=== PATIENT | female | born 1945 | race Caucasian/White ===

== ENCOUNTER 2018-10-20 13:33 | Inpatient (IN) | payer MEDICARE, MEDICAID ==
[~2018-10-20] VITALS: Ht 162.6 cm; Wt 54.9 kg
[~2018-10-20 13:33] MED LIST: ACET-2853 PO
[2018-10-20] MEDS ORDERED: VISCOUS LIDOCAINE 2% 15 ML UDC PO STA (14:13)
[2018-10-20] MEDS ORDERED: ONDANSETRON HCL 4MG/2ML INJ IV STA (14:13)
[2018-10-20] MEDS ORDERED: SODIUM CHLORIDE 0.9% 1,000 ML IV ONE (14:13)
[2018-10-20] MEDS ORDERED: MAGNESIUM/ALUMINUM HYDROXIDE/SIMETHICONE 30ML UDC PO STA (14:13)
[2018-10-20] MEDS ORDERED: FAMOTIDINE 20MG/2ML VIAL IV STA (14:13)
[2018-10-20 14:37] LABS: BASOPHILS % 0.2 % (0.0-2.0); EOSINOPHILS % 0.2 % (0.0-5.0); HEMATOCRIT. 40.8 % (36.0-48.0); HEMOGLOBIN. 13.4 g/dL (12.0-16.0); LYMPHOCYTES % 8.5 % (20.0-50.0); MEAN CORPUSCULAR HEMOGLOBIN 28.1 pg (28.0-32.0); MEAN CORPUSCULAR VOLUME 85.6 fL (81.0-99.0); MEAN PLATELET VOLUME 8.1 fl (7.4-10.4); NEUTROPHILS % 86.1 % (40.0-76.0); PLATELET 269 x1000/uL (130-400); RED BLOOD CELL COUNT 4.76 mill/uL (4.2-5.4)
[2018-10-20 14:43] LABS: CHLORIDE 108 mEq/L (98-107)
[2018-10-20] MEDS ORDERED: DIATR MEGLU/DIATRIZOATE SOLN 30ML ONE (14:49)
[2018-10-20 14:50] LABS: INR 3.1; PROTHROMBIN TIME 30.2 sec (9.1-11.1)
[2018-10-20 15:11] LABS: CLARITY URINE CLOUDY (CLEAR); COLOR URINE YELLOW (YELLOW); KETONES URINE NEGATIVE (NEGATIVE); LEUKOCYTE ESTERASE URINE NEGATIVE (NEGATIVE); NITRITE URINE NEGATIVE (NEGATIVE); OCCULT BLOOD URINE TRACE (NEGATIVE); PH URINE 8.5 (4.5-8.0); PROTEIN URINE TRACE (NEGATIVE); SPECIFIC GRAVITY URINE 1.015 (1.005-1.030); UROBILINOGEN URINE 0.2 E.U./dL (0.2-1.0)
[2018-10-20] MEDS ORDERED: IOHEXOL-300 100 ML BOTTLE ONE (18:52)
[2018-10-20] MEDS ORDERED: MORPHINE SULFATE 4 MG/ML CPJ (NOT FOR IM USE) IV ONE (21:00)
[2018-10-21] VITALS (7 sets, daily range): BP systolic 126–156; BP diastolic 62–92
[2018-10-21] MEDS ORDERED: ONDANSETRON HCL 4MG/2ML INJ IV PRN (00:30)
[2018-10-21] MEDS ORDERED: MORPHINE SULFATE 4 MG/ML CPJ (NOT FOR IM USE) IV PRN (00:30)
[2018-10-21] MEDS: DEXT 5%/0.45% NACL KCL 20MEQ/L 1,000 ML IV SCH ×3 (02:27→18:41)
[2018-10-21] MEDS: PANTOPRAZOLE SODIUM 40 MG/VIAL IV SCH (10:05)
[2018-10-22] VITALS: BP 137/89
[2018-10-22 04:00] VITALS: BP 155/94
[2018-10-22 08:00] VITALS: BP 122/68
[2018-10-22] MEDS: PANTOPRAZOLE SODIUM 40 MG/VIAL IV SCH (08:26)
[2018-10-22 08:41] LABS: BASOPHILS % 0.6 % (0.0-2.0); EOSINOPHILS % 0.8 % (0.0-5.0); HEMATOCRIT. 39.7 % (36.0-48.0); HEMOGLOBIN. 13.1 g/dL (12.0-16.0); LYMPHOCYTES % 11.1 % (20.0-50.0); MEAN CORPUSCULAR HEMOGLOBIN 27.9 pg (28.0-32.0); MEAN CORPUSCULAR VOLUME 84.4 fL (81.0-99.0); MEAN PLATELET VOLUME 8.5 fl (7.4-10.4); MONOCYTES % 8.5 % (2.0-8.0); PLATELET 241 x1000/uL (130-400)
[2018-10-22 09:10] LABS: CHLORIDE 105 mEq/L (98-107)
[2018-10-22] MEDS: DEXT 5%/0.45% NACL KCL 20MEQ/L 1,000 ML IV SCH ×2 (11:20→18:06)
[2018-10-22 12:00] VITALS: BP_SYST 131; BP_SYST 45; BP_DIAS 52; BP_DIAS 82
[2018-10-22 12:38] LABS: INR 1.7; PROTHROMBIN TIME 17.1 sec (9.1-11.1)
[2018-10-22 14:53] VITALS: BP 129/73
[2018-10-22] MEDS ORDERED: WARFARIN SODIUM 2.5MG TABLET PO NR (18:00)
== END 2018-10-22 20:25 | disposition home or self-care (01) | DRG 948 ==
LOC: ER 13:33 → EDBEDREQ 21:02 → EDBEDREQTM 21:02 → ENRESERV 22:58 → 6EST 10-21 01:17
PROVIDERS: ADMIT Internal Medicine; ATTEND Internal Medicine
DX: R79.1 Abnormal coagulation profile (principal); K43.3 Parastomal hernia with obstruction, without gangrene; E87.8 Other disorders of electrolyte and fluid balance, not elsewhere classified; I10 Essential (primary) hypertension; I48.91 Unspecified atrial fibrillation; R32 Unspecified urinary incontinence; Z79.01 Long term (current) use of anticoagulants; Z85.038 Personal history of other malignant neoplasm of large intestine; Z93.3 Colostomy status; T45.515A Adverse effect of anticoagulants, initial encounter; Y92.89 Other specified places as the place of occurrence of the external cause
CPT/HCPCS: 36415; 74018; 74177; 80048; 84484; 96361; 96374; 96375; 99285; C9113; J2405; J3490; J7030; Q9963; Q9967

== ENCOUNTER 2021-01-13 15:40 | Inpatient (IN) | payer MEDICARE, MEDICAID ==
[~2021-01-13] VITALS: Ht 154.9 cm; Wt 56.2 kg
[~2021-01-13 15:40] MED LIST changes: -ACET-2853 PO; +ACET650T37 PO
[2021-01-13 16:32] LABS: BASOPHILS % 0.6 % (0.0-2.0); EOSINOPHILS % 0.1 % (0.0-5.0); HEMATOCRIT. 36.9 % (36.0-48.0); HEMOGLOBIN. 12.5 g/dL (12.0-16.0); MEAN CORPUSCULAR VOLUME 94.7 fL (81.0-99.0); MEAN PLATELET VOLUME 8.9 fl (7.4-10.4); MONOCYTES % 10.4 % (2.0-8.0); NEUTROPHILS % 76.9 % (40.0-76.0); PLATELET 233 x1000/uL (130-400); RED BLOOD CELL COUNT 3.89 mill/uL (4.2-5.4); RED CELL DISTRIBUTION WIDTH 15.7 % (11.6-14.6)
[2021-01-13 16:40] LABS: CHLORIDE 103 mEq/L (98-107)
[2021-01-13 16:43] LABS: INR 1.1
[2021-01-13] MEDS ORDERED: ACETAMINOPHEN 325MG TABLET PO ONE (16:45)
[2021-01-13] MEDS ORDERED: VANCOMYCIN 1 G PREMIX 200 ML IV ONE (17:00)
[2021-01-13] MEDS ORDERED: PIPERACILLIN/TAZ 3.375G PREMIX 50 ML IV ONE (17:00)
[2021-01-13] MEDS ORDERED: IPRATROPIUM/ALBUTEROL 0.5-3(2.5)MG/3ML NEB NEB PRN (18:15)
[2021-01-13] MEDS ORDERED: MAGNESIUM/ALUMINUM HYDROXIDE/SIMETHICONE 30ML UDC PO PRN (18:15)
[2021-01-13] MEDS ORDERED: LEVOFLOXACIN 500MG PREMIX 100 ML IV SCH (18:15)
[2021-01-13] MEDS ORDERED: DOCUSATE SODIUM 100MG CAPSULE PO PRN (18:15)
[2021-01-13] MEDS ORDERED: GUAIFENESIN 200MG/10ML SUGAR FREE UDC PO PRN (18:15)
[2021-01-13] MEDS ORDERED: ONDANSETRON HCL 4MG/2ML INJ IV PRN (18:15)
[2021-01-13] MEDS ORDERED: ACETAMINOPHEN 325MG TABLET PO PRN ×2 (18:15)
[2021-01-13] MEDS ORDERED: ENOXAPARIN 40MG/0.4ML SYR SUBCUT SCH (18:15)
[2021-01-13] MEDS ORDERED: KETOROLAC 15MG/ML VIAL IV PRN (18:15)
[2021-01-13] MEDS ORDERED: AZITHROMYCIN 500 MG in DEXT 5% WATER 250 ML IV SCH (18:15)
[2021-01-13] MEDS ORDERED: NITROGLYCERIN 0.4MG TABLET SL SL PRN (18:15)
[2021-01-13] MEDS ORDERED: CEFTRIAXONE 1 G PREMIX 50 ML IV SCH (18:30)
[2021-01-13] MEDS ORDERED: ENOXAPARIN 30MG/0.3ML SYR SUBCUT SCH (19:00)
[2021-01-13 19:17] LABS: CLARITY URINE CLOUDY (CLEAR); COLOR URINE YELLOW (YELLOW); KETONES URINE NEGATIVE (NEGATIVE); LEUKOCYTE ESTERASE URINE TRACE (NEGATIVE); NITRITE URINE POSITIVE (NEGATIVE); OCCULT BLOOD URINE 3+ (NEGATIVE); PROTEIN URINE 2+ (NEGATIVE); SPECIFIC GRAVITY URINE 1.037 (1.005-1.030)
[2021-01-13 19:33] LABS: *AMPHETAMINES SCREEN URINE NEGATIVE (NEGATIVE); *BARBITURATES SCREEN URINE NEGATIVE (NEGATIVE); *BENZODIAZEPINES SCREEN URINE NEGATIVE (NEGATIVE); *COCAINE SCREEN URINE NEGATIVE (NEGATIVE); METHADONE URINE SCREEN NEGATIVE (NEGATIVE); OPIATES URINE SCREEN NEGATIVE (NEGATIVE)
[2021-01-13 19:34] LABS: CANNABINOID URINE SCREEN NEGATIVE (NEGATIVE); PHENCYCLIDINE URINE SCREEN NEGATIVE (NEGATIVE)
[2021-01-13 19:38] LABS: T4 FREE 1.26 ng/dL (0.76-1.46)
[2021-01-13 19:50] LABS: FOLIC ACID (FOLATE) SERUM >20 ng/mL ng/mL (>5.38)
[2021-01-13 20:02] LABS: VITAMIN B12 SERUM 159 pg/mL (211-911)
[2021-01-13] MEDS ORDERED: ZOLPIDEM TARTRATE 5MG TABLET PO PRN (21:00)
[2021-01-13] MEDS: FAMOTIDINE 20MG TABLET PO SCH (22:55)
[2021-01-13] MEDS: ASCORBIC ACID 500 MG TABLET PO SCH (22:55)
[2021-01-13 23:05] VITALS: BP 143/68
[2021-01-13 23:06] VITALS: BP 143/68
[2021-01-14] VITALS: BP 139/71
[2021-01-14 00:19] LABS: CREATINE KINASE MB FRACTION 2.6 ng/mL (0.5-3.6)
[2021-01-14 04:00] VITALS: BP 161/46
[2021-01-14 07:02] LABS: BASOPHILS % 0.3 % (0.0-2.0); EOSINOPHILS % 0.3 % (0.0-5.0); HEMATOCRIT. 33.3 % (36.0-48.0); HEMOGLOBIN. 11.5 g/dL (12.0-16.0); LYMPHOCYTES % 13.8 % (20.0-50.0); MEAN CORPUSCULAR HEMOGLOBIN 32.2 pg (28.0-32.0); MEAN CORPUSCULAR VOLUME 92.9 fL (81.0-99.0); MEAN PLATELET VOLUME 9.2 fl (7.4-10.4); MONOCYTES % 9.3 % (2.0-8.0); NEUTROPHILS % 76.3 % (40.0-76.0); PLATELET 212 x1000/uL (130-400); RED BLOOD CELL COUNT 3.59 mill/uL (4.2-5.4); RED CELL DISTRIBUTION WIDTH 15.3 % (11.6-14.6)
[2021-01-14 07:15] LABS: CHLORIDE 101 mEq/L (98-107)
[2021-01-14 07:24] LABS: PHOSPHORUS 2.6 mg/dL (2.5-4.9)
[2021-01-14 07:31] LABS: CREATINE KINASE MB FRACTION 2.1 ng/mL (0.5-3.6)
[2021-01-14 08:00] VITALS: BP 155/70
[2021-01-14] MEDS ORDERED: ASPIRIN 325MG EC TABLET PO SCH (09:00)
[2021-01-14] MEDS: ZINC SULFATE 220 MG ( 50 ) CAPSULE PO SCH (09:54)
[2021-01-14] MEDS: CHOLECALCIFEROL (D3) 1000 UNIT TABLET PO SCH (09:54)
[2021-01-14] MEDS: ASCORBIC ACID 500 MG TABLET PO SCH ×2 (09:54→20:51)
[2021-01-14] MEDS ORDERED: DILTIAZEM HCL 5MG/ML 5ML VIAL IV NR (10:15)
[2021-01-14] MEDS: ENOXAPARIN 60MG/0.6ML SYR SUBCUT SCH ×2 (11:24→20:53)
[2021-01-14] MEDS: DILTIAZEM HCL 60MG TABLET PO SCH ×3 (11:24→23:40)
[2021-01-14 12:00] VITALS: BP 126/66
[2021-01-14] MEDS: AZITHROMYCIN 500 MG in DEXT 5% WATER 250 ML IV SCH (14:57)
[2021-01-14] MEDS ORDERED: MAGNESIUM 2 G PREMIX 50 ML IV NR (15:00)
[2021-01-14] MEDS: CEFTRIAXONE 1,000 MG in DEXTROSE 5% WATER 50 ML IV SCH (15:58)
[2021-01-14 16:00] VITALS: BP 133/78
[2021-01-14] MEDS ORDERED: METO-539 MT (18:39)
[2021-01-14] MEDS ORDERED: DILT360T13 MT (18:39)
[2021-01-14] MEDS ORDERED: LEVO75TA7 MT (18:39)
[2021-01-14] MEDS ORDERED: DIGO125T80 MT (18:39)
[2021-01-14] MEDS ORDERED: WARF2.5T83 MT (18:39)
[2021-01-14] MEDS ORDERED: EMPA10TA PO ×2 (18:39→21:41)
[2021-01-14 20:00] VITALS: BP 119/54
[2021-01-14] MEDS: FAMOTIDINE 20MG TABLET PO SCH (20:52)
[2021-01-14] MEDS ORDERED: METF500S7 PO (21:41)
[2021-01-14] MEDS ORDERED: SITA100T11 PO (21:41)
[2021-01-14] MEDS: DILTIAZEM HCL 5MG/ML 5ML VIAL IV PRN (22:32)
[2021-01-15] VITALS (7 sets, daily range): BP systolic 114–146; BP diastolic 57–81
[2021-01-15] MEDS: DILTIAZEM HCL 60MG TABLET PO SCH (05:19)
[2021-01-15] MEDS ORDERED: DEXTROSE 50% WATER 50ML SYRINGE IV PRN (05:30)
[2021-01-15] MEDS: BLOOD SUGAR DIAGNOSTIC STRIP TEST SCH ×4 (07:23→20:51)
[2021-01-15] MEDS: ZINC SULFATE 220 MG ( 50 ) CAPSULE PO SCH (08:51)
[2021-01-15] MEDS: CHOLECALCIFEROL (D3) 1000 UNIT TABLET PO SCH (08:51)
[2021-01-15] MEDS: INSULIN LISPRO 100 UNITS/ML SUBCUT SCH ×4 (08:52→20:51)
[2021-01-15] MEDS: ASCORBIC ACID 500 MG TABLET PO SCH ×2 (08:54→20:50)
[2021-01-15] MEDS: ENOXAPARIN 60MG/0.6ML SYR SUBCUT SCH ×2 (08:55→20:50)
[2021-01-15] MEDS ORDERED: ASPIRIN 81MG EC TABLET PO SCH (09:00)
[2021-01-15] MEDS ORDERED: LEVOFLOXACIN 500MG PREMIX 100 ML IV SCH (11:00)
[2021-01-15] MEDS: DILTIAZEM HCL 90MG TABLET PO SCH ×3 (12:26→23:23)
[2021-01-15] MEDS: CEFTRIAXONE 1,000 MG in DEXTROSE 5% WATER 50 ML IV SCH (13:56)
[2021-01-15] MEDS: AZITHROMYCIN 500 MG in DEXT 5% WATER 250 ML IV SCH (13:57)
[2021-01-15] MEDS ORDERED: DIGOXIN 500MCG/2ML AMP IV NR (15:23)
[2021-01-15 16:05] LABS: INR 1.1; PROTHROMBIN TIME 12.1 sec (9.6-11.0)
[2021-01-15] MEDS ORDERED: WARFARIN SODIUM 2.5MG TABLET PO SCH (18:00)
[2021-01-15] MEDS: FAMOTIDINE 20MG TABLET PO SCH (20:50)
[2021-01-15] MEDS: DILTIAZEM HCL 5MG/ML 5ML VIAL IV PRN (22:22)
[2021-01-16] VITALS: BP 108/65
[2021-01-16 04:00] VITALS: BP 141/73
[2021-01-16] MEDS: BLOOD SUGAR DIAGNOSTIC STRIP TEST SCH ×4 (06:14→21:32)
[2021-01-16] MEDS: DILTIAZEM HCL 90MG TABLET PO SCH ×4 (06:14→23:55)
[2021-01-16] MEDS: INSULIN LISPRO 100 UNITS/ML SUBCUT SCH ×4 (06:23→21:30)
[2021-01-16 08:00] VITALS: BP 156/78
[2021-01-16 08:56] LABS: CHLORIDE 102 mEq/L (98-107)
[2021-01-16] MEDS: ENOXAPARIN 60MG/0.6ML SYR SUBCUT SCH ×2 (09:02→21:31)
[2021-01-16] MEDS: ZINC SULFATE 220 MG ( 50 ) CAPSULE PO SCH (09:03)
[2021-01-16] MEDS: CLONIDINE 0.1MG TABLET PO PRN (09:03)
[2021-01-16] MEDS: ASCORBIC ACID 500 MG TABLET PO SCH ×2 (09:03→21:31)
[2021-01-16] MEDS: CHOLECALCIFEROL (D3) 1000 UNIT TABLET PO SCH (09:03)
[2021-01-16] MEDS ORDERED: DIGOXIN 500MCG/2ML AMP IV SCH (11:45)
[2021-01-16] MEDS: CEFTRIAXONE 1,000 MG in DEXTROSE 5% WATER 50 ML IV SCH (11:56)
[2021-01-16 12:00] VITALS: BP_SYST 130; BP_SYST 77; BP_DIAS 38; BP_DIAS 52
[2021-01-16 12:25] LABS: INR 1.2; PROTHROMBIN TIME 12.8 sec (9.6-11.0)
[2021-01-16] MEDS: AZITHROMYCIN 500 MG in DEXT 5% WATER 250 ML IV SCH (14:14)
[2021-01-16 16:00] VITALS: BP_SYST 118; BP_SYST 130; BP_DIAS 67; BP_DIAS 74
[2021-01-16] MEDS ORDERED: WARFARIN SODIUM 2.5MG TABLET PO SCH (18:00)
[2021-01-16] MEDS: DIGOXIN 125MCG TABLET PO SCH (18:08)
[2021-01-16] MEDS: AMPICILLIN 1,000 MG in SODIUM CHLORIDE 0.9% 50 ML IV SCH ×2 (18:09→23:55)
[2021-01-16 20:00] VITALS: BP 134/84
[2021-01-16] MEDS: FAMOTIDINE 20MG TABLET PO SCH (21:33)
[2021-01-17] VITALS (7 sets, daily range): BP systolic 108–166; BP diastolic 58–93
[2021-01-17] MEDS: AMPICILLIN 1,000 MG in SODIUM CHLORIDE 0.9% 50 ML IV SCH ×3 (05:41→18:00)
[2021-01-17] MEDS: DILTIAZEM HCL 90MG TABLET PO SCH ×4 (05:42→19:01)
[2021-01-17 06:42] LABS: INR 1.2; PROTHROMBIN TIME 12.8 sec (9.6-11.0)
[2021-01-17 06:47] LABS: BASOPHILS % 0.8 % (0.0-2.0); EOSINOPHILS % 0.3 % (0.0-5.0); HEMATOCRIT. 33.2 % (36.0-48.0); HEMOGLOBIN. 11.3 g/dL (12.0-16.0); LYMPHOCYTES % 13.6 % (20.0-50.0); MEAN CORPUSCULAR HEMOGLOBIN 32.2 pg (28.0-32.0); MEAN CORPUSCULAR VOLUME 94.4 fL (81.0-99.0); MEAN PLATELET VOLUME 9.6 fl (7.4-10.4); MONOCYTES % 8.7 % (2.0-8.0); NEUTROPHILS % 76.6 % (40.0-76.0); PLATELET 288 x1000/uL (130-400); RED BLOOD CELL COUNT 3.52 mill/uL (4.2-5.4)
[2021-01-17] MEDS: BLOOD SUGAR DIAGNOSTIC STRIP TEST SCH ×4 (06:47→21:06)
[2021-01-17] MEDS: INSULIN LISPRO 100 UNITS/ML SUBCUT SCH ×4 (07:50→21:06)
[2021-01-17] MEDS: ZINC SULFATE 220 MG ( 50 ) CAPSULE PO SCH (09:00)
[2021-01-17] MEDS: CHOLECALCIFEROL (D3) 1000 UNIT TABLET PO SCH (09:00)
[2021-01-17] MEDS: ASCORBIC ACID 500 MG TABLET PO SCH ×2 (09:00→21:04)
[2021-01-17] MEDS: ENOXAPARIN 60MG/0.6ML SYR SUBCUT SCH ×2 (09:01→21:04)
[2021-01-17] MEDS ORDERED: AMIODARONE HCL 900 MG in DEXT 5% WATER 482 ML IV SCH (12:30)
[2021-01-17] MEDS: AMIODARONE HCL 150 MG in DEXT 5% WATER 100 ML IV NR ×2 (14:20→14:54)
[2021-01-17] MEDS: DIGOXIN 125MCG TABLET PO SCH ×2 (17:16→19:01)
[2021-01-17] MEDS ORDERED: WARFARIN SODIUM 2MG TABLET PO NR (18:00)
[2021-01-17] MEDS: FAMOTIDINE 20MG TABLET PO SCH (21:04)
[2021-01-18] VITALS: BP 149/73
[2021-01-18 04:00] VITALS: BP 153/84
[2021-01-18] MEDS: AMPICILLIN 1,000 MG in SODIUM CHLORIDE 0.9% 50 ML IV SCH ×4 (06:00→17:56)
[2021-01-18] MEDS: DILTIAZEM HCL 90MG TABLET PO SCH ×3 (06:00→17:59)
[2021-01-18] MEDS: BLOOD SUGAR DIAGNOSTIC STRIP TEST SCH ×4 (06:51→21:49)
[2021-01-18 06:52] LABS: BASOPHILS % 0.5 % (0.0-2.0); EOSINOPHILS % 0.4 % (0.0-5.0); HEMATOCRIT. 31.5 % (36.0-48.0); HEMOGLOBIN. 10.9 g/dL (12.0-16.0); LYMPHOCYTES % 13.5 % (20.0-50.0); MEAN CORPUSCULAR HEMOGLOBIN 32.5 pg (28.0-32.0); MEAN CORPUSCULAR VOLUME 93.8 fL (81.0-99.0); MEAN PLATELET VOLUME 9.4 fl (7.4-10.4); MONOCYTES % 9.1 % (2.0-8.0); NEUTROPHILS % 76.5 % (40.0-76.0); PLATELET 287 x1000/uL (130-400); RED BLOOD CELL COUNT 3.36 mill/uL (4.2-5.4); RED CELL DISTRIBUTION WIDTH 14.8 % (11.6-14.6)
[2021-01-18 06:54] LABS: INR 1.2; PROTHROMBIN TIME 12.7 sec (9.6-11.0)
[2021-01-18 07:06] LABS: CHLORIDE 102 mEq/L (98-107)
[2021-01-18 07:18] LABS: CREATINE KINASE 75 IU/L (26-192)
[2021-01-18] MEDS: CHOLECALCIFEROL (D3) 1000 UNIT TABLET PO SCH (07:53)
[2021-01-18] MEDS: ASCORBIC ACID 500 MG TABLET PO SCH ×2 (07:53→21:47)
[2021-01-18] MEDS: ZINC SULFATE 220 MG ( 50 ) CAPSULE PO SCH (07:53)
[2021-01-18] MEDS: ENOXAPARIN 60MG/0.6ML SYR SUBCUT SCH ×2 (08:27→21:48)
[2021-01-18] MEDS: INSULIN LISPRO 100 UNITS/ML SUBCUT SCH ×4 (08:28→21:49)
[2021-01-18 11:01] VITALS: BP 135/73
[2021-01-18 12:00] VITALS: BP 136/81
[2021-01-18] MEDS: AMIODARONE HCL 200 MG TABLET PO SCH (15:57)
[2021-01-18 16:00] VITALS: BP 162/93
[2021-01-18] MEDS ORDERED: DIATR MEGLU/DIATRIZOATE SOLN 30ML PO NR (16:00)
[2021-01-18] MEDS ORDERED: DIGOXIN 500MCG/2ML AMP IV SCH (18:00)
[2021-01-18] MEDS ORDERED: WARFARIN SODIUM 3MG TABLET PO NR (18:00)
[2021-01-18] MEDS: FAMOTIDINE 20MG TABLET PO SCH (21:47)
[2021-01-19] MEDS: AMIODARONE HCL 200 MG TABLET PO SCH ×4 (01:14→22:00)
[2021-01-19] MEDS: AMPICILLIN 1,000 MG in SODIUM CHLORIDE 0.9% 50 ML IV SCH ×5 (01:15→23:32)
[2021-01-19] MEDS: DILTIAZEM HCL 90MG TABLET PO SCH ×3 (01:16→12:12)
[2021-01-19 06:36] LABS: INR 1.2; PROTHROMBIN TIME 12.4 sec (9.6-11.0)
[2021-01-19] MEDS: BLOOD SUGAR DIAGNOSTIC STRIP TEST SCH ×4 (06:41→21:00)
[2021-01-19 06:52] LABS: BASOPHILS % 0.8 % (0.0-2.0); EOSINOPHILS % 0.5 % (0.0-5.0); HEMOGLOBIN. 10.8 g/dL (12.0-16.0); MEAN CORPUSCULAR HEMOGLOBIN 32.6 pg (28.0-32.0); MEAN CORPUSCULAR VOLUME 93.3 fL (81.0-99.0); MEAN PLATELET VOLUME 8.8 fl (7.4-10.4); MONOCYTES % 6.8 % (2.0-8.0); NEUTROPHILS % 78.9 % (40.0-76.0); PLATELET 305 x1000/uL (130-400); RED BLOOD CELL COUNT 3.32 mill/uL (4.2-5.4); RED CELL DISTRIBUTION WIDTH 15.1 % (11.6-14.6)
[2021-01-19] MEDS: INSULIN LISPRO 100 UNITS/ML SUBCUT SCH ×4 (07:50→22:01)
[2021-01-19 08:00] VITALS: BP 131/71
[2021-01-19] MEDS: ASCORBIC ACID 500 MG TABLET PO SCH ×2 (09:12→22:00)
[2021-01-19] MEDS: CHOLECALCIFEROL (D3) 1000 UNIT TABLET PO SCH (09:13)
[2021-01-19] MEDS: ZINC SULFATE 220 MG ( 50 ) CAPSULE PO SCH (09:13)
[2021-01-19] MEDS: ENOXAPARIN 60MG/0.6ML SYR SUBCUT SCH ×2 (09:13→22:00)
[2021-01-19 12:00] VITALS: BP 158/89
[2021-01-19] MEDS ORDERED: SODIUM CHLORIDE 0.45% 250 ML IV ONE (13:45)
[2021-01-19] MEDS: DILTIAZEM HCL 60MG TABLET PO SCH ×2 (17:34→23:33)
[2021-01-19] MEDS: DIGOXIN 125MCG TABLET PO SCH (17:38)
[2021-01-19] MEDS ORDERED: WARFARIN SODIUM 4MG TABLET PO NR (18:00)
[2021-01-19 20:00] VITALS: BP 168/94
[2021-01-19] MEDS: FAMOTIDINE 20MG TABLET PO SCH (22:00)
[2021-01-19] MEDS: CLONIDINE 0.1MG TABLET PO PRN (23:33)
[2021-01-20] VITALS: BP 165/91
[2021-01-20 04:00] VITALS: BP 104/71
[2021-01-20] MEDS: AMPICILLIN 1,000 MG in SODIUM CHLORIDE 0.9% 50 ML IV SCH ×2 (06:40→13:00)
[2021-01-20] MEDS: AMIODARONE HCL 200 MG TABLET PO SCH ×2 (06:42→13:38)
[2021-01-20] MEDS: BLOOD SUGAR DIAGNOSTIC STRIP TEST SCH ×2 (06:42→13:01)
[2021-01-20] MEDS: DILTIAZEM HCL 60MG TABLET PO SCH ×2 (06:42→13:01)
[2021-01-20 06:54] LABS: INR 1.2; PROTHROMBIN TIME 12.9 sec (9.6-11.0)
[2021-01-20] MEDS: INSULIN LISPRO 100 UNITS/ML SUBCUT SCH ×2 (07:50→13:02)
[2021-01-20 07:56] VITALS: BP 140/80
[2021-01-20] MEDS: ASCORBIC ACID 500 MG TABLET PO SCH (09:29)
[2021-01-20] MEDS: CHOLECALCIFEROL (D3) 1000 UNIT TABLET PO SCH (09:29)
[2021-01-20] MEDS: ZINC SULFATE 220 MG ( 50 ) CAPSULE PO SCH (09:29)
[2021-01-20] MEDS: ENOXAPARIN 60MG/0.6ML SYR SUBCUT SCH (09:35)
[2021-01-20 11:58] VITALS: BP 146/65
[2021-01-20 15:53] VITALS: BP 136/61
[2021-01-20] MEDS ORDERED: WARFARIN SODIUM 5MG TABLET PO SCH (18:00)
== END 2021-01-20 18:07 | DRG 871 ==
LOC: ER 15:40 → 6WST 17:36 → SUPCPDRO 18:01 → EDBEDREQSVC 18:47 → EDBEDREQ 18:47 → EDBEDREQTM 18:47 → ENRESERV 20:40
PROVIDERS: ADMIT Internal Medicine; ATTEND Internal Medicine
DX: A41.9 Sepsis, unspecified organism (principal); G92 Toxic encephalopathy; N39.0 Urinary tract infection, site not specified; E44.1 Mild protein-calorie malnutrition; E87.1 Hypo-osmolality and hyponatremia; E87.2 Acidosis; I48.19 Other persistent atrial fibrillation; I50.40 Unspecified combined systolic (congestive) and diastolic (congestive) heart failure; E03.9 Hypothyroidism, unspecified; E11.9 Type 2 diabetes mellitus without complications; F03.90 Unspecified dementia, unspecified severity, without behavioral disturbance, psychotic disturbance, mood disturbance, and anxiety; B96.20 Unspecified Escherichia coli [E. coli] as the cause of diseases classified elsewhere; R74.01 Elevation of levels of liver transaminase levels; I11.0 Hypertensive heart disease with heart failure; I25.10 Atherosclerotic heart disease of native coronary artery without angina pectoris; I27.20 Pulmonary hypertension, unspecified; Z85.038 Personal history of other malignant neoplasm of large intestine; Z93.3 Colostomy status; Z95.2 Presence of prosthetic heart valve; Z95.810 Presence of automatic (implantable) cardiac defibrillator; Z79.899 Other long term (current) drug therapy; Z68.23 Body mass index [BMI] 23.0-23.9, adult; R65.20 Severe sepsis without septic shock
CPT/HCPCS: 36415; 71045; 80048; 80053; 80061; 80076; 80162; 80305; 81003; 82550; 82553; 82607; 82746; 82962; 83036; 83540; 83550; 83605; 83735; 84100; 84145; 84439; 84443; 84484; 85025; 87077; 87186; 92610; 93005; 93306; 93970; 99285; A6261; C1893; J0282; J0290; J0456; J0696; J1160; J1650; J1815; J1956; J2543; J3370; J3475; J3490; J7040; J7060; A4315